=== PATIENT | female | born 1980 | race Caucasian/White ===

== ENCOUNTER 2020-07-24 00:25 | Observation (INO) | payer MEDICAID, SELFPAY ==
[2020-07-24] VITALS (26 sets, daily range): BP systolic 98–158; BP diastolic 46–84; PULSE 48–96; RESP 12–20; TEMP 36.5–37.2; O2SAT 92–100; BMI 20.3
--- NOTE | 2020-07-24 00:42 | ED_ITS ---
HPI - Abdominal Pain General: Chief Complaint: Abdominal Pain Stated Complaint: abd pain/n/v Time Seen by Provider: 07/24/20 00:36 Source: patient and family Mode of arrival: ambulatory Limitations: no limitations History of Present Illness: HPI narrative: Mervat is a 40-year-old female who comes in with a complaint of nausea, vomiting and diarrhea. Her symptoms started today and got progressively worse as the day has gone on. She not had a fever. There is been no report of blood in her stools or blood in her vomit. Patient states that she is having significant abdominal cramping at this time. Patient had her hysterectomy denies any vaginal discharge or bleeding. Does not report any urinary symptoms. She states that she just feels weak and tired and severely nauseated. She states one other time she had similar symptoms and was evaluated but a cause cannot be determined. No one else in her family or in her home is sick with similar symptoms. Associated Symptoms: Reports diarrhea, nausea and vomiting; Denies chills, coffee ground emesis, constipation, GI cramping, dysuria, fever(s), heartburn, hematochezia, hematuria, hematemesis, melena and syncope Review of Systems Const: Denies: fever(s), chills, body aches, fatigue, malaise or diaphoresis Eyes: Denies: change in vision, blurry vision, photophobia, eye discomfort, eye discharge, eye redness or yellow eyes ENMT: Denies: throat pain, odynophagia, hoarseness, swelling of lips/tongue, ear or mastoid pain, ear discharge, change in hearing or nasal discharge Card: Denies: chest pain, palpitations, irregular heart rhythm, edema, lightheadedness, syncope, pre-syncope, dyspnea on exertion or orthopnea Resp: Denies: dyspnea, productive cough, non-productive cough, wheezing, hemoptysis or chest congestion GI: Reports: abdominal pain, nausea, vomiting and diarrhea; Denies: hematemesis, coffee ground emesis, heartburn, constipation, GI cramping, hematochezia or melena : Denies: flank pain, dysuria, urinary frequency, urinary urgency or hematuria Musc: Denies: neck pain, back pain, extremity pain, extremity swelling, joint pain, joint swelling, joint redness, joint warmth or joint stiffness Skin/Breast: Denies: rash, pruritus, erythema, skin pain or skin tenderness Neuro: Denies: headache(s), numbness in extremities, weakness in extremities, sensory changes, lack of coordination, difficulty walking, dizziness, vertigo, confusion, Slurred speech present or seizure-like activity Eric/Lymph: Denies: easy bruising, easy bleeding, petechiae, purpura or enlarged lymph nodes All/Imm: Denies: urticaria, throat swelling, tongue swelling, facial swelling or acute wheezing PFSH ED PFSH: Medical History No pertinent past medical history Surgical History H/O: hysterectomy S/P cholecystectomy Physical Exam Const: COMMON NORMALS: no acute distress, patient oriented x3, no limitations and alert GENERAL APPEARANCE: cooperative HENMT: COMMON NORMALS: normocephalic, atraumatic, external ears normal, EAC's normal and Normal external nose present HEAD & SCALP: normal to inspection, normocephalic and atraumatic FACE & SINUS: normal facial exam and face symmetric NOSE: Normal external nose present and Normal nares present EXTERNAL EAR: Yes external ears normal EXTERNAL AUDITORY CANAL: EAC's normal MOUTH: Normal oral and palatal mucosa present, lip normal and tongue normal Eye: COMMON NORMALS: Equal, round and reactive pupils present and conjunctivae normal GENERAL EYE: appearance normal, both eyes and all related structures ALIGNMENT: Yes alignment normal PERIORBITAL: periorbital findings normal EYELID: eyelids normal CONJUNCTIVA: Yes conjunctivae normal SCLERA: sclerae normal PUPIL: Yes Equal, round and reactive pupils present Neck/C-Spine: COMMON NORMALS: full ROM, no lymphadenopathy, supple, no meningeal signs and no JVD GENERAL: Yes normal visual inspection and Yes trachea midline Chest: COMMONS NORMALS: normal inspection of the chest and normal palpation of entire chest wall Resp: COMMON NORMALS: normal respiratory effort, No retractions, No use of accessory muscles and clear to auscultation bilaterally EFFORT & INSPECTION: Yes able to speak in complete sentences and Yes symmetric chest movement AUSCULTATION: clear to auscultation bilaterally, no crackles, no rales, no rhonchi and no wheezes Cardio: COMMON NORMALS: no JVD, regular rate, regular rhythm, S1 normal heart sound present and S2 normal heart sound present RATE: regular rate RHYTHM: regular rhythm HEART SOUNDS: S1 normal heart sound present, S2 normal heart sound present, no click, no gallops, no murmurs and no rubs GI: COMMON NORMALS: Soft to palpation and No hepatosplenomegaly present PALPATION: Yes Soft to palpation, Yes Tenderness to palpation present (GI) (Mild to moderate diffusely. No rebound, no guarding and no rigidity.), No Guarding due to palpation present (GI), No Rigid due to palpation, Yes No hepatosplenomegaly present, No Hernia present, No Palpable mass present and No Pulsatile mass present : COMMON NORMALS: Yes no CVA tenderness BLADDER/KIDNEY EXAM: Yes no CVA tenderness EXTERNAL FEMALE EXAM: No Hernia present Back/Pelvis: COMMON NORMALS: no CVA tenderness, thoracic and lumbar spine normal to inspection, no thoracic nor lumbar tenderness and thoraco-lumbar ROM normal Extremity: COMMON NORMALS: normal to inspection, full ROM, capillary refill normal, no joint enlargement, no clubbing, cyanosis or edema and no calf tenderness Neuro: COMMON NORMALS: patient oriented x3, CN's II-XII intact bilaterally, moves all extremities, no focal motor deficits and no sensory deficits noted SENSORIUM/ORIENTATION: Yes alert MENINGEAL SIGNS: Yes no meningeal signs SPEECH: speech normal Psych: COMMON NORMALS: mental status grossly normal, Normal thought process present, cooperative, normal affect, speech normal and activity/motor behavior normal SPEECH: Yes normal speech THOUGHT PROCESS: Normal thought process present Skin: COMMON NORMALS: no rashes or lesions noted, turgor normal, no jaundice, no petechiae and no mottling GENERAL SKIN EXAM: no rashes or lesions noted and turgor normal Course Vital Signs: Vital signs: Vital Signs Temperature 97.7 F 07/24/20 00:31 Pulse Rate 48 L 07/24/20 00:31 Respiratory Rate 20 H 07/24/20 02:00 Blood Pressure 145/74 07/24/20 00:31 Pulse Oximetry 99 07/24/20 02:00 MDM - Abdominal Pain MDM Narrative: Medical decision making narrative: Mervat is a nice 40-year-old female comes in complaining of abdominal pain along with vomiting and diarrhea. She is had no fever. She denies any urinary symptoms or gyne cological symptoms. On exam the patient is diffusely tender but more so in the right lower quadrant. CT scan reveals a combination of colitis and possible appendicitis. As the case is not clear I have discussed this with Dr. Cordero who agrees to admit for observation with IV antibiotics, fluids, n.p.o. status and he will examine to see if this progresses and she will need an appendectomy or if this can be treated as a colitis. Clinically at this time the patient is still very nauseous and sick and I do not believe should be benefited by going home. Lab Data: Attestation: I reviewed the patient's lab results. Labs: Lab Results 07/24/20 07/24/20 07/24/20 Range/Units 01:36 01:36 01:36 WBC 14.1 H (4.0-10.0) 10^3/ uL RBC 4.56 (4.1-5.3) 10^6/u L Hgb 15.1 (11.5-15.3) g/dL Hct 44.2 (37.0-47.0) % MCV 96.9 (81-99) fL MCH 33.1 (28.0-34.0) pg MCHC 34.2 (30.0-36.0) g/dL RDW 12.5 (12.1-15.1) % Plt Count 176 (130-400) 10^3/c mm MPV 11.4 H (7.4-10.4) fL Neut % (Auto) 89.9 % Lymph % (Auto) 6.2 % [place] % (Auto) 3.4 % Eos % (Auto) 0.1 % Baso % (Auto) 0.1 % Neut # (Auto) 12.70 H (1.8-7.7) 10^3/u L Lymph # (Auto) 0.9 (0.8-4.8) 10^3/u L [place] # (Auto) 0.5 (0.2-0.9) 10^3/u L Eos # (Auto) 0.0 (0.0-0.8) 10^3/u L Baso # (Auto) 0.0 (0.0-0.1) 10^3/u L Nucleated RBC % (a uto) 0 % Nucleated RBCs # 0.0 /100WBC Sodium 137 (136-145) mmol/L Potassium 3.5 (3.5-5.1) mmol/L Chloride 101 (98-107) mmol/L Carbon Dioxide 25 (22-29) mmol/L Anion Gap 14.5 (5-19) BUN 9 (6-20) mg/dL Creatinine 0.9 (0.5-0.9) mg/dL GFR Calculation 70.1 L (90-130) mL/min Glucose 136 H (65-115) mg/dL Calculated Osmolal ity 282 L (285-295) mOsm/k g Calcium 9.0 (8.5-10.5) mg/dL Magnesium 1.8 (1.7-2.3) mg/dL Total Bilirubin 0.7 (0.15-1.2) mg/dL AST 17 (0-32) U/L ALT 10 (0-33) U/L Alkaline Phosphata se 112 H (35-105) IU/L Total Protein 7.4 (6.6-8.7) g/dL Albumin 4.4 (3.5-5.2) g/dL Globulin 3.0 (1.3-4.6) g/dL Lipase 18 (13-60) U/L HCG, Qual Negative (Negative) Imaging Data ^: CT Abd/Pel: Radiologist's impression: [address] [address] [address] Scan Report Signed Patient: Mervat Pham Unit #: [id number] : 1980 Age/Sex: 40 / F ADM Date: 07/24/20 Loc: ER Room/Bed: Attending Dr: Ordering Provider/Ordering MD: Gale Villarreal DO Date of Service: 07/24/20 Procedure(s): CT abdomen pelvis w con* [id number] Accession Number(s): [id number] Report Number: [id number] PROCEDURE INFORMATION: Exam: CT Abdomen And Pelvis With Contrast Exam date and time: 07/24/2020 12:55 AM Age: 40 years old Clinical indication: Nausea and vomiting; Abdominal pain; Generalized; Prior surgery; Surgery type: Hysterectomy, cholecystectomy TECHNIQUE: Imaging protocol: Computed tomography of the abdomen and pelvis with intravenous contrast. Radiation optimization: All CT scans at this facility use at least one of these dose optimization techniques: automated exposure control; mA and/or kV adjustment per patient size (includes targeted exams where dose is matched to clinical indication); or iterative reconstruction. Contrast material: OMNI 300; Contrast volume: 95 ml; Contrast route: INTRAVENOUS (IV); COMPARISON: CT Abdomen/Pelvis Renal [id number] 03/28/2018 6:14 PM RADIATION DOSE METRICS: Total DLP (mGy-cm): 443.95 FINDINGS: Liver: Normal. No mass. Gallbladder and bile ducts: Cholecystectomy. Pancreas: Normal. No ductal dilation. Spleen: Normal. No splenomegaly. Adrenals: Normal. No mass. Kidneys and ureters: Normal. No hydronephrosis. Stomach and bowel: Mild colonic wall thickening with some mucosal enhancement is suggested at ascending colon to at least hepatic flexure. Appendix: Appendix is distended with fluid. Intraperitoneal space: Unremarkable. No free air. No significant fluid collection. Vasculature: Unremarkable. No abdominal aortic aneurysm. Lymph nodes: Unremarkable. No enlarged lymph nodes. Bladder: Unremarkable as visualized. Reproductive: Hysterectomy. Bones/joints: No acute fracture. Soft tissues: Unremarkable. CT/CT abdomen pelvis w con* [id number] IMPRESSION: Fluid distension of appendix can be secondary to early appendicitis or can be secondary to colitis of proximal colon. Case discussed with ordering physician. Radiation Dose CTDIVOL = (mGy): DLP = 443.95 (mGy-cm) Dictated By: Carlos Rangel MD Signed By: Carlos Rangel MD Signed Date/Time: 0 07/24/20299 DD/ 9 EKG Data ^: EKG 1: Attestation: I personally reviewed and interpreted this EKG as follows: EKG interpretation date: 07/24/20 EKG interpretation time: 03:24 Interpretation: Sinus bradycardia with sinus arrhythmia with a ventricular rate of 54 beats a minute, normal axis, no blocks, normal intervals, nonspecific ST and T wave changes. 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
--- NOTE | 2020-07-24 00:53 | ECG_ITS ---
[facility] Test Date: 2020-07-24 Pat Name: Mervat Pham Department: Room: Gender: Female Emt Basic: : 1980 Requested By: Gale Jimenez Order Number: [id number] Duran MD: Marah Caceres M.D. Measurements Intervals [place] Rate: 54 P: 72 DE: 172 QRS: 76 QRSD: 92 T: 91 QT: 440 QTc: 420 Interpretive Statements SINUS BRADYCARDIA WITH SINUS ARRHYTHMIA NONSPECIFIC T-WAVE ABNORMALITY No previous ECG available for comparison Electronically Signed On 07-24-2020 14:49:09 CDT by Marah Caceres M.D. [id number]
[2020-07-24] MEDS: sodium chloride 0.9% 1,000 ML 999 ML IV (01:45)
[2020-07-24 01:46] LABS: Basophils % 0.1 %; Eosinophils % 0.1 %; Hematocrit 44.2 % (37.0-47.0); Hemoglobin 15.1 g/dL (11.5-15.3); Lymphocytes # 0.9 10^3/uL (0.8-4.8); Lymphocytes % 6.2 %; Mean Corpuscular HGB Conc 34.2 g/dL (30.0-36.0); Mean Corpuscular Hemoglobin 33.1 pg (28.0-34.0); Mean Corpuscular Volume 96.9 fL (81-99); Mean Platelet Volume 11.4 fL (7.4-10.4); Monocytes # 0.5 10^3/uL (0.2-0.9); Monocytes % 3.4 %; Neutrophils % 89.9 %; Nucleated Red Blood Cells % 0 %; Platelet Count 176 10^3/cmm (130-400); Red Blood Count 4.56 10^6/uL (4.1-5.3); Red Cell Distribution Width 12.5 % (12.1-15.1); White Blood Count 14.1 10^3/uL (4.0-10.0)
[2020-07-24] MEDS: metoclopramide 5 mg/mL SDV 2 mL 10 MG IV (01:50)
[2020-07-24] MEDS: ondansetron 2 mg/ML SDV 2 mL 4 MG IVP (01:55)
[2020-07-24] MEDS: HYDROmorphone 1 mg/mL INJ 1 mL 0.5 MG IVP (02:00)
[2020-07-24 02:02] LABS: Alanine Aminotransferase 10 U/L (0-33); Albumin Level 4.4 g/dL (3.5-5.2); Alkaline Phosphatase 112 IU/L (35-105); Anion Gap 14.5 (5-19); Aspartate Amino Transferase 17 U/L (0-32); Blood Urea Nitrogen 9 mg/dL (6-20); Carbon Dioxide 25 mmol/L (22-29); Chloride 101 mmol/L (98-107); Glomerular Filtration Rate 70.1 mL/min (90-130); Glucose 136 mg/dL (65-115); HCG, Serum Qual Negative (Negative); Lipase 18 U/L (13-60); Magnesium 1.8 mg/dL (1.7-2.3); Osmolality Calculated 282 mOsm/kg (285-295); Potassium 3.5 mmol/L (3.5-5.1); Sodium 137 mmol/L (136-145); Total Bilirubin 0.7 mg/dL (0.15-1.2); Total Protein 7.4 g/dL (6.6-8.7)
[2020-07-24] MEDS: iohexol 300 mg/mL 100 mL Btl IV (02:12)
[2020-07-24] MEDS: piperacillin-tazobactam 3.375 GM in sodium chloride 0.9% (plus) 50 ML IV ×3 (03:19→16:05)
[2020-07-24 03:46] LABS: Blood Urine Neg (Negative); Glucose Urine UA Norm (Normal); Ketones Urine Negative (Negative); Nitrate Urine Positive (Negative); Protein Urine Trace (Negative); Urine Appearance Clear (CLEAR); Urine Color Dark Yellow (Yellow); pH Urine 9 (5-7)
[2020-07-24 03:47] LABS: Add Urine Culture? Yes; Add Urine Microscopic? YES; Bacteria Urine 2+ /hpf; Bilirubin Urine Neg (Negative); Leukocyte Esterase Urine Negative (Negative); Mucus Urine 1+ /hpf; RBC Urine 0-4 /hpf (0-2); Urobilinogen Urine Norm (Negative); WBC Urine 0-4 /hpf (0-5)
--- NOTE | 2020-07-24 05:38 | PM.HP ---
Providers/Chief Complaint Admitting Physician: Jesus Cordero MD Chief Complaint: abd pain/n/v History of Present Illness Chief Complaint: Abdominal pain History of present illness: Mervat Pham is a pleasant 40 year old female presents to the emergency department with worsening abdominal pain that started around 2:30 PM yesterday mostly in the epigastric region and supraumbilical and started to involve the right side of the abdomen. Associated with nausea and repeated vomiting but no fevers or chills yet she did feel cold whenever she vomits. She did have diarrhea nonbloody in nature and reports no dysuria. Patient gives history of no similar episodes in the past and she reports that her mom had history of IBS and her grandpa had history of rectal cancer. She never had a colonoscopy before and she feels A million times better now . Patient was evaluated in the emergency department and was found to have leukocytosis of 14,000 and lactic acid is pending. Pain mostly diffuse in nature being stabbing referred to the right side and gets worse when moving and better on laying down General surgery was consulted for further evaluation patient was seen and evaluated in the emergency department room 8 CT scan of the abdomen and pelvis COMPARISON: CT Abdomen/Pelvis Renal [id number] 03/28/2018 6:14 PM RADIATION DOSE METRICS: Total DLP (mGy-cm): 443.95 FINDINGS: Liver: Normal. No mass. Gallbladder and bile ducts: Cholecystectomy. Pancreas: Normal. No ductal dilation. Spleen: Normal. No splenomegaly. Adrenals: Normal. No mass. Kidneys and ureters: Normal. No hydronephrosis. Stomach and bowel: Mild colonic wall thickening with some mucosal enhancement is suggested at ascending colon to at least hepatic flexure. Appendix: Appendix is distended with fluid. Intraperitoneal space: Unremarkable. No free air. No significant fluid collection. Vasculature: Unremarkable. No abdominal aortic aneurysm. Lymph nodes: Unremarkable. No enlarged lymph nodes. Bladder: Unremarkable as visualized. Reproductive: Hysterectomy. Bones/joints: No acute fracture. Soft tissues: Unremarkable. CT/CT abdomen pelvis w con* [id number] IMPRESSION: Fluid distension of appendix can be secondary to early appendicitis or can be secondary to colitis of proximal colon. Case discussed with ordering physician. Review of Systems General: Reports: 10 or more systems reviewed and unremarkable except in HPI and below Medications/Allergies Home Medications Medication Instructions Recorded Confirmed Last Taken Type No Known Home Medications 07/24/20 07/24/20 Unknown History Allergies Allergy/AdvReac Type Severity Reaction Status Date / Time ketorolac [From Toradol] Allergy Unknown Verified 07/24/20 09:19 morphine Allergy ALGY-Difficulty Verified 07/24/20 09:19 Breathing ondansetron [From Zofran] Allergy Unknown Verified 07/24/20 09:19 PFSH Acute PFSH: Medical History (Updated 07/24/20 @ 03:18 by Gale Villarreal) No pertinent past medical history Surgical History H/O: hysterectomy S/P cholecystectomy Vitals/I&O/Wt Last Vital Signs Temp 97.7 F 07/24/20 00:31 Pulse 48 L 07/24/20 00:31 Resp 20 H 07/24/20 02:00 BP 145/74 07/24/20 00:31 Pulse Ox 99 07/24/20 02:00 Weight last 48 hrs Weight 130 lb Physical Exam Narrative: EXAM NARRATIVE: Patient is conscious alert oriented X3 BMI 20.4 Head and neck examination PERRLA no masses no cervical lymphadenopathy no jaundice Cardiac examination audible S1-S2 no murmurs no gallops no arrhythmias Chest is clear bilateral,abscence of Rhonchi or wheezes,no surgical emphysema Abdomen diffusely tender yet maximal tenderness at right lower quadrant at McBurney's point with localized rigidity and guarding Extremities no cyanosis no clubbing no edema Data : 07/24/20 01:36 07/24/20 01:36 A&P Assessment and plan (1) Colitis: 6 AM 07/24/2020 after thorough history physical examination and reviewing the chart and images likely the patient does have ascending colon colitis, will plan to have the patient under my service with IV antibiotics and IV fluid resuscitation Repeated physical examination I will plan to review the images with our radiologist today 0900 AM Reviwed images with Dr Pham she believes that the appendix is dilated 10mm and no evidence of colitis yet there is evidence of enteritis involving jejunal loops and some ileal loops. Given the fact that there is hyperemia of the wall of the appendix likely represent appendicitis with fluid-filled, in comparison to previous CT scan of the abdomen pelvis patient did not have these findings. I did discuss with the patient the CT scan findings and based on history physical examination and reviewing the images with my personal interpretation and further discussing it with our radiology. We will plan to perform laparoscopic appendectomy possible open. Patient agreed to proceed and informed consent per chart Status: Acute Attestations Medical Necessity Statement*: Observation status for appropriate IV fluid resuscitation and repeated physical exam Time Spent in Patient Care: (>than 50% of time spent in counselling and/or direct pt care on unit). 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
[2020-07-24 06:24] LABS: Lactic Sepsis W/Reflex 1.2 mmol/L (0.5-2.2)
[2020-07-24] MEDS: dextrose 5%-sod chloride 0.45% 1,000 ML 150 ML IV ×2 (09:18→16:06)
--- NOTE | 2020-07-24 09:41 | PC.NURSE ---
I reporterd the pain med request to the nurse keshawn
--- NOTE | 2020-07-24 09:56 | PC.NURSE ---
Patient wants meds to bed when being discharged. Discussed this at bedside and went over surgical site infections handout. Patient consent is signed and allergy bracelet as well as ID bracelet verified. Patient given Dilaudid and Reglan for pain and nausea.
[2020-07-24] MEDS: HYDROmorphone 1 mg/mL INJ 1 mL 0.25 MG IVP ×2 (10:09→16:47)
[2020-07-24] MEDS: metoclopramide 5 mg/mL SDV 2 mL IVP (10:10)
--- NOTE | 2020-07-24 12:51 | ANES.PREANE2 ---
Pre-Anesthetic Assessment Pre-Anesthetic Assessment: Height/Weight: Height 1.7 m Weight 58.967 kg Temp Pulse Resp BP Pulse Ox 98.7 F 61 16 107/65 96 07/24/20 11:17 07/24/20 11:17 07/24/20 11:17 07/24/20 11:17 07/24/20 11:17 Preop Diagnosis: Acute appendicitis Proposed Procedure: Operation Date: 07/24/20 12:25 Proposed Procedures p Laparoscopic Appendectomy(Not Applicable) - Jesus Cordero MD Familial anesthetic complications: none Was Beta Anupama taken within 24 hours: N/A Last intake: Intake Last Liquid Date 07/23/20 Last Liquid Time 16:00 Last Solid Date 07/23/20 Last Solid Time 16:00 Social: Social History: Tobacco and No alcohol Exam: Pre-Anes Outpt Exam: alert, oriented x 3, clear to auscultation bilaterally and regular rate & rhythm Airway: Cervical ROM: WNL MP: 2 Dentition: Full and Other Anesthetic Plan: ASA status: 1 Anesthesia: General Risk of > 500 ml blood loss (7ml/kg in children): No Meds/Allergies Current Medications: Current Medications Generic Name Dose Route Start Last Admin Trade Name Freq PRN Reason Stop Dose Admin Hydromorphone HCl 0.25 mg 07/24/20 06:31 07/24/20 10:09 Dilaudid Inj IVP 0.25 mg Q4H PRN Administration PAIN Dextrose/Sodium Ch loride 1,000 mls @ 150 m ls/hr 07/24/20 06:31 07/24/20 09:18 Dextrose 5%-Sod Chloride 0.45% IV 150 mls/hr .Q6H40M NICO Administration Piperacillin Sod/T azobactam 50 mls @ 12.5 mls /hr 07/24/20 09:00 07/24/20 09:29 Sod 3.375 gm/ So dium Chloride IV 12.5 mls/hr Q8H NICO Administration Protocol Metoclopramide HCl 5 mg 07/24/20 06:31 07/24/20 10:10 Reglan IVP 5 mg Q6H PRN Administration NAUSEA AND VOMITI NG PFSH Anesthesia PFSH: Medical History (Updated 07/24/20 @ 03:18 by Gale Villarreal) No pertinent past medical history Surgical History H/O: hysterectomy S/P cholecystectomy Data Anesthesia CBC & Chem 7: 07/24/20 01:36 07/24/20 01:36 Other Labs: Laboratory Results - last 48 hr 07/24/20 07/24/20 07/24/20 01:36 01:36 01:36 WBC 14.1 H RBC 4.56 Hgb 15.1 Hct 44.2 MCV 96.9 MCH 33.1 MCHC 34.2 RDW 12.5 Plt Count 176 MPV 11.4 H Neut % (Auto) 89.9 Lymph % (Auto) 6.2 [place] % (Auto) 3.4 Eos % (Auto) 0.1 Baso % (Auto) 0.1 Neut # (Auto) 12.70 H Lymph # (Auto) 0.9 [place] # (Auto) 0.5 Eos # (Auto) 0.0 Baso # (Auto) 0.0 Nucleated RBC % (auto) 0 Nucleated RBCs # 0.0 Sodium 137 Potassium 3.5 Chloride 101 Carbon Dioxide 25 Anion Gap 14.5 BUN 9 Creatinine 0.9 GFR Calculation 70.1 L Glucose 136 H Calculated Osmolality 282 L Lactic Acid Calcium 9.0 Magnesium 1.8 Total Bilirubin 0.7 AST 17 ALT 10 Alkaline Phosphatase 112 H Total Protein 7.4 Albumin 4.4 Globulin 3.0 Lipase 18 HCG, Qual Negative Urine Color Urine Appearance Urine pH Ur Specific [place] Urine Protein Urine Glucose (UA) Urine Ketones Urine Blood Urine Nitrate Urine Bilirubin Urine Urobilinogen Ur Leukocyte Esterase Urine RBC Urine WBC Ur Squamous Epith Cells Amorphous Sediment Urine Bacteria Urine Mucus 07/24/20 07/24/20 01:36 02:50 WBC RBC Hgb Hct MCV MCH MCHC RDW Plt Count MPV Neut % (Auto) Lymph % (Auto) [place] % (Auto) Eos % (Auto) Baso % (Auto) Neut # (Auto) Lymph # (Auto) [place] # (Auto) Eos # (Auto) Baso # (Auto) Nucleated RBC % (auto) Nucleated RBCs # Sodium Potassium Chloride Carbon Dioxide Anion Gap BUN Creatinine GFR Calculation Glucose Calculated Osmolality Lactic Acid 1.2 Calcium Magnesium Total Bilirubin AST ALT Alkaline Phosphatase Total Protein Albumin Globulin Lipase HCG, Qual Urine Color Dark yellow Urine Appearance Clear Urine pH 9 H Ur Specific [place] 1.010 Urine Protein Trace Urine Glucose (UA) Norm Urine Ketones Negative Urine Blood Neg Urine Nitrate Positive H Urine Bilirubin Neg Urine Urobilinogen Norm Ur Leukocyte Esterase Negative Urine RBC 0-4 H Urine WBC 0-4 H Ur Squamous Epith Cells 10-15 H Amorphous Sediment Not Reportable Urine Bacteria 2+ H Urine Mucus 1+ Cardiac Studies: No Data to Display
[2020-07-24] MEDS: sodium chloride 0.9% 1,000 ML 30 ML IV (13:01)
[2020-07-24] MEDS: lidocaine 2% INJ 20 mL INJECTION (14:27)
--- NOTE | 2020-07-24 14:37 | PM.OP ---
Operative Report Date of procedure: July 24, 2020 Pre-op Diagnosis: Acute appendicitis Post-op Diagnosis: Retrocecal acute appendicitis yet no perforation Post-op Findings: Retrocecal acute appendicitis and left ovarian polycystic pathology Procedure Done: Laparoscopic appendectomy Specimens removed/disposition: Appendix Surgeon: Jesus Cordero Volleyball Assembler: Surgical evan Mcgowan and Renata Circulating nurse Coleen Anesthesia: General (home lending officer Eir[place]) Estimated blood loss (mL): 10 Condition: stable Disposition: observation Brief History: This is a pleasant 40 years old female patient presents to the emergency department with worsening abdominal pain. After thorough history physical examination and reviewing the chart and images with my personal interpretion and with discussing the images with Dr. Pham radiologist, I counseled the patient for laparoscopic appendectomy possible open. Indications, risks, benefits and alternatives were all discussed with the patient and did agree to proceed. Rationale was carefully and clearly discussed with the patient.Appropriate informed consent have been reviewed and signed Procedure: Patient after being identified in the holding area and asked to void urine, and informed consent per chart ,patient was then taken back to the OR placed in supine position got intubated by anesthesia left arm was tucked tucked ,Timeout was done verifying the patient's name/date of /planned procedure and destination after the procedure, all were in agreement., preoperative antibiotics administered per protocol. prep and drape of the abdomen was done under the usual sterile technique. Started by longitudinal skin incision supraumbilical using a Dennis trocar technique safe entry to the abdominal cavity was achieved verified by using 10 mm zero degree laparoscopy, switched to a 30? scope under direct visualization a suprapubic 5 mm trocar was inserted followed by another 5 mm trocar inserted in the left lower quadrant, I was able to position the patient in an T [place] and left side down, dissection of the retrocecal acutely inflamed appendix there was some adhesions towards the lateral pelvic wall that was taken down by sharp and blunt dissection, attention was deviated to the healthy base of the appendix where I had to switch the camera to 5 mm 30? scope got introduced through the left lower quadrant and through the Dennis trocar under direct visualization a GI stapler 45 mm blue load was applied at the healthy part of the base of the appendix, and an Endoloop PDS was applied onto the mesoappendix for control , the appendix was then retrieved in an Endo Catch bag, final survey was done of the abdomen and pelvis , irrigation with warm saline, and suction was obtained, were mercury fluid like in the pelvis due to reaction from the inflamed appendix. A 5 mm clips were applied onto the mesoappendix as well as the appendectomy staple line and a right lateral pelvic wall for minimal oozing. Patient was noticed to have left ovarian polycystic disorder about 4 cm in diameter and was being firm in consistency with some dilation of the left fallopian tube. And intraoperative consultation with was able to visualize the laparoscopic view of the ovarian cystic changes and her thought it is likely hemorrhagic versus endometriosis.The recommendation is to follow-up as an outpatient with an ultrasound and no surgical intervention at this point. There was no signs of carcinomatosis otherwise. Final look laparoscopy was done showing no other abnormalities or injuries, all trocars were taken out under direct visualization after the supraumblical trocar site was closed by #1 PDS sutures under direct vision using fascial closure device ,followed by skin closure using 3-0 Vicryl and 4-0 Monocryl of all trocar site incisions.Infiltration of local lidocaine 2% was done to all incision sites.Dry dressing was applied. Count was completed at the end of the procedure for [place] , sponges and instruments Patient tolerated the procedure well and was transferred to the recovery area after extubation. I was present for the whole entire procedure
[2020-07-24] MEDS: fentaNYL 50 mcg/mL INJ 2mL IVP ×2 (14:56→15:01)
--- NOTE | 2020-07-24 15:29 | PM.PACU ---
PACU note Post-Anesthesia Exam: awake and vital signs stable Disposition: back to floor
[2020-07-24] MEDS: HYDROcodone-acetaminophen 5-325 mg Tablet 1 TAB PO ×2 (15:47→22:22)
[2020-07-25] VITALS (7 sets, daily range): BP systolic 132–143; BP diastolic 73–81; PULSE 46–70; RESP 17–20; TEMP 36.8–37.1; O2SAT 94–97
[2020-07-25] MEDS: piperacillin-tazobactam 3.375 GM in sodium chloride 0.9% (plus) 50 ML IV (01:07)
[2020-07-25] MEDS: HYDROmorphone 1 mg/mL INJ 1 mL 0.25 MG IVP ×3 (01:07→09:27)
[2020-07-25 02:25] LABS: Basophils % 0.1 %; Hematocrit 38.6 % (37.0-47.0); Hemoglobin 12.7 g/dL (11.5-15.3); Lymphocytes # 0.7 10^3/uL (0.8-4.8); Mean Corpuscular HGB Conc 32.9 g/dL (30.0-36.0); Mean Corpuscular Volume 100.3 fL (81-99); Monocytes # 0.1 10^3/uL (0.2-0.9); Monocytes % 1.7 %; Neutrophils # 6.71 10^3/uL (1.8-7.7); Neutrophils % 88.9 %; Nucleated Red Blood Cells % 0 %; Platelet Count 121 10^3/cmm (130-400); Red Blood Count 3.85 10^6/uL (4.1-5.3); Red Cell Distribution Width 12.8 % (12.1-15.1); White Blood Count 7.6 10^3/uL (4.0-10.0)
[2020-07-25 02:43] LABS: Blood Urea Nitrogen 5 mg/dL (6-20); Calcium 8.5 mg/dL (8.5-10.5); Carbon Dioxide 19 mmol/L (22-29); Chloride 106 mmol/L (98-107); Glomerular Filtration Rate 80.3 mL/min (90-130); Glucose 203 mg/dL (65-115); Osmolality Calculated 286 mOsm/kg (285-295); Sodium 137 mmol/L (136-145)
[2020-07-25] MEDS: dextrose 5%-sod chloride 0.45% 1,000 ML 150 ML IV (05:24)
--- NOTE | 2020-07-25 05:50 | PM.SDS ---
Short Stay Summary Providers Date of Admit/Discharge: 07/26/20 Attending Provider: Jesus Cordero MD Primary Care Provider: DOCTOR NOT ON FILE Chief Complaint: abd pain/n/v HPI History of Present Illness Ms. Mervat Pham is a 40 year old female presents to the emergency department with worsening abdominal pain work-up showed elevated WBC count and after further evaluation of the patient and reviewing of the CT scan images patient was found to have acute appendicitis and she was counseled for laparoscopic appendectomy. Review of Systems General: Reports: 10 or more systems reviewed and unremarkable except in HPI and below Home Meds/Allergies Home Medications and Allergies Allergies Allergy/AdvReac Type Severity Reaction Status Date / Time ketorolac [From Toradol] Allergy Unknown Verified 07/25/20 05:51 morphine Allergy ALGY-Difficulty Verified 07/25/20 05:51 Breathing ondansetron [From Zofran] Allergy Unknown Verified 07/25/20 05:51 PFSH Acute PFSH: Medical History No pertinent past medical history Surgical History H/O: hysterectomy S/P cholecystectomy Vitals/I&O/Wt Last Vital Signs Temp 98.3 F 07/25/20 04:00 Pulse 47 L 07/25/20 04:00 Resp 17 07/25/20 05:24 BP 132/73 07/25/20 04:00 Pulse Ox 97 07/25/20 04:00 07/24/20 07/24/20 07/25/20 14:59 22:59 06:59 Intake Total 550 / 550 1384.0 / 1934.0 Output Total Balance 530 / 530 1384.0 / 1914.0 -1910.0 Weight last 48 hrs Weight 130 lb Physical Exam Narrative: EXAM NARRATIVE: Patient is conscious alert oriented X3 BMI 20.4 Head and neck examination PERRLA no masses no cervical lymphadenopathy no jaundice Cardiac examination audible S1-S2 no murmurs no gallops no arrhythmias Chest is clear bilateral,abscence of Rhonchi or wheezes,no surgical emphysema Abdomen nontender except at the incision sites nondistended soft no organomegaly guarding or rigidity/no signs of peritonitis Extremities no cyanosis no clubbing no edema Hospital Course Admission Diagnoses: Appendicitis Discharge Summary: This is a pleasant 60 years old female patient presents with history of abdominal pain was found to have acute appendicitis. Patient undergone uneventful laparoscopic appendectomy and was found to have incidental findings of left ovarian cyst that was discussed with Dr. Richard intraoperatively and recommended conservative measures and follow-up as an outpatient with ultrasound. Patient postoperatively overall did well had her pain for the most part under control and she did encounter asymptomatic bradycardia.Maintains otherwise stable vital signs and good urine output and tolerating well p.o. intake. SSS Data Data Completed and Pending: Completed Studies During Hospitalization Category Date Time Status CT abdomen pelvis w con* [id number] Stat Cat Scan 07/24/20 00:41 Completed Pending at discharge Category Date Time Status ES surgery / GI i mages Routine Exams 07/24/20 12:36 Ordered Urine Culture Sta t Lab 07/24/20 02:50 Received Pathology: Surgic al [PTH] Routine Pth 07/24/20 14:48 Ordered Diagnoses at Discharge Discharge Diagnosis (1) Acute appendicitis: Status: Resolved Problem details: Will plan to advance diet to full liquid I will place the patient on oral antibiotics upon discharge Pain medications Avoid constipation DC home today once patient passes gas Assurance and education All questions have been answered and all concerns have been addressed to patient's satisfaction. Qualifiers: Acute appendicitis type: unspecified acute appendicitis type Qualified Code(s): K35.80 - Unspecified acute appendicitis Discharge Plan Discharge Patient Disposition: Home Condition: Stable Prescriptions: [place] 5-325 mg tablet 1 tab PO Q6H PRN (Reason: pain) Qty: 28 RF: 0 Augmentin 875-125 mg tablet 1 tab PO BID Qty: 10 RF: 0 Discharge Orders: Discharge Order (Routine); Ordered 07/25/20 Ordered By: Jesus Cordero Referrals: Jesus Cordero MD [Physician] - 08/06/20 10:45 am (Return to surgery office in 10 days. You have an appointment on August 06 at 10:45am) Janeth Guzman MD [Physician] - 08/13/20 8:30 am (Follow-up with Dr. Richard first available with regard to incidental finding of left ovarian cysts. You have an appointment on August 13 at 8:30am) Discharge Diet: GI Soft Discharge Activity: Limit activity as instructed Patient Instructions: Amoxicillin/Clavulanate Potassium (By mouth), Hydrocodone (By mouth), Appendicitis (DC), Laparoscopic Appendectomy (DC) Activity Restrictions/Additional Instructions: 1. Patient can shower after 48 hours from surgery 2. Remove Dermabond 7 to 10 days after surgery, if there is a secondary dressing can take down after 48 hours. 3. Up and walking as tolerated 4. Do lift more than 5 pounds first 2 weeks after surgery and not more than 25 pounds 6 to 8 weeks after surgery. 5. Do not operate heavy machinery or drive while using pain medications. 6.Contact the office or return to the ER for worsening nausea vomiting fevers or chills, or noticing any redness around incision sites or discharge. Discharge Date/Time: 07/25/20 10:34 Attestations Medical Necessity Statement*: Patient was observed overnight to monitor the leukocytosis and have appropriate pain control and have the benefit of parenteral antimicrobial therapy. 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
--- NOTE | 2020-07-25 05:54 | PC.NURSE ---
Physician at bedside for rounding, patient up to bathroom 300cc urine output, discussion with patients pain management on discharge as well as follow up care with [facility] with dr alexis and follow up with his clinic in roughly 7-10 days, patient will be a pending discharge today regarding patient passing gas, physician will place orders for advancement in diet.
--- NOTE | 2020-07-25 07:19 | ANE.PACU2 ---
Inpatient post-anesthesia follow up: Airway intact: Yes Vital signs: Temperature 98.3 F Pulse Rate [Monito r] 48 Pulse Rate 47 Respiratory Rate 17 Blood Pressure [Ri ght Arm] 145/74 Blood Pressure 132/73 Pulse Oximetry 97 Oxygen Delivery Me thod [ Room Air Current Rate & Del joao] Oxygen Delivery Me thod Room Air Oxygen Flow Rate 0 Fraction of Inspir ed Oxygen Hydration adequate: Yes Nausea and vomiting: No Pain level: 2 Mental status: Baseline
== END 2020-07-25 10:34 | disposition home or self-care (01) ==
LOC: ER 03:18 → MEDSURG 03:40
PROVIDERS: Emergency Medicine; Admitting Provider Surgery; Visit Provider Surgery
PROC: 0DTJ4ZZ Resection of Appendix, Percutaneous Endoscopic Approach (ICD-10-PCS; CPT 44970; principal; 2020-07-24 12:25)
DX: K35.80 Unspecified acute appendicitis (principal); N83.202 Unspecified ovarian cyst, left side; Z88.5 Allergy status to narcotic agent; Z90.49 Acquired absence of other specified parts of digestive tract
CPT/HCPCS: 44970; 12345; 36415; 74177; 80048; 80053; 81001; 83605; 83690; 83735; 84703; 85025; 87077; 87086; 87186; 88304; 93005; 96361; 96365; 96366; 96375; 99283; 99285; G0378; J0131; J1100; J1170; J2405; J2543; J2704; J2710; J2765; J3010; J3490; J7030; J7799; Q9967